=== PATIENT | female | born 1985 | race Caucasian/White ===

== ENCOUNTER 2018-05-31 09:31 | Inpatient (IN) ==
[2018-05-31 10:04] LABS: Basophils % 0.5 % (0.0-0.8); Eosinophils % 0.5 % (0.00-10.9); Hematocrit 32.5 VOL% (35.7-47.0); Hemoglobin 10.8 GM/DL (12.0-16.0); Immature Granulocytes % 0.5 %; Immature Granulocytes Absolute 0.04 #; Lymphocytes # 2.1 10*3/uL (1.4-4.0); Lymphocytes % 25.1 % (21.3-54.2); Mean Corpuscular HGB Conc 33.2 GM/DL (32-36); Mean Corpuscular Hemoglobin 31 PG (27-34); Mean Corpuscular Volume 93.1 FL (87-102); Mean Platelet Volume 12.2 FL (9.6-12.0); Monocytes # 0.4 10*3/uL (0.11-0.8); Monocytes % 4.5 % (1.7-12.7); Neutrophils # 5.8 10*3/uL (1.4-7.4); Neutrophils % 68.9 % (38.7-73.9); Platelet Count 213 T/CUMM (130-400); Red Blood Count 3.49 MC/CUMM (3.8-5.5); Red Cell Distribution Width 13.2 % (9.3-17.3); White Blood Count 8.4 T/CUMM (4-12)
[2018-05-31 10:15] LABS: INR 0.9; PT Patient Result 9.4 SECS
[2018-05-31 10:21] LABS: Alanine Aminotransferase 12 U/L (13-56); Albumin 2.4 G/DL (3.4-5.0); Alkaline Phosphatase 223 U/L (45-117); Aspartate Amino Transferase 14 U/L (0-37); Bilirubin,Direct < 0.100 MG/DL (0.0-0.20); Blood Urea Nitrogen 6 MG/DL (7-18); Calcium 8.2 MG/DL (8.5-10.1); Glucose 82 MG/DL (74-106); Osmolality,Calculated 269.8 MOS/KG (273-304); Potassium 3.9 MMOL/L (3.5-5.1); Sodium 137 MMOL/L (136-145); Total Protein 6.8 G/DL (6.4-8.3); Uric Acid 5.3 MG/DL (2.6-6.0)
[2018-05-31] MEDS ORDERED: hydrALAZINE 20 MG/1 ML VIAL IV ONE (10:23)
[2018-05-31] MEDS: LACTATED RINGERS 1,000 ML IV SCH ×2 (10:36→17:16)
[2018-05-31 11:22] LABS: Apearance,Urine CLOUDY (Clear); Bacteria,Urine Occasional /HPF (Few); Bilirubin,Urine Negative (Negative); Blood, Urine Negative (Negative); Glucose,Urine (UA) Negative (Negative); Ketones,Urine Negative (Negative); Mucus,Urine Occasional /LPF (Occasional); Nitrite,Urine Negative (Negative); Protein,Urine 100 MG/DL; Squamous Epithelial Cell,Urine Occasional /HPF (0-10); Urine Color Yellow (Yellow); Urine Specific Gravity 1.014 (1.001-1.035); Urine Urobilinogen < 2.0 EU/DL (0.2-1.0); WBC,Urine 6 /HPF (0-6)
[2018-05-31] MEDS ORDERED: DINOPROSTONE VAG GEL 10 MG SYRINGE VAG ONE (13:05)
[2018-05-31] MEDS ORDERED: CITRIC ACID/SODIUM CITRATE 30 ML UDCUP PO ONE (13:10)
[2018-05-31] MEDS ORDERED: FAMOTIDINE 20 MG/2 ML VIAL IV ONE (13:10)
[2018-05-31] MEDS ORDERED: ceFAZolin 2,000 MG in PREMIX 1 EACH IV ONE (13:10)
[2018-05-31] MEDS ORDERED: OXYTOCIN 10 UNIT/ML VIAL IM ONE (13:53)
[2018-05-31] MEDS ORDERED: OXYTOCIN/LR 30 UNIT/1,000 ML BAG IV ONE (16:30)
[2018-05-31 19:03] LABS: Cord Arterial Blood HCO3 20.4 MMOL/L
[2018-05-31] MEDS ORDERED: ONDANSETRON 4 MG/2 ML VIAL IV PRN (19:06)
[2018-05-31] MEDS ORDERED: OXYTOCIN/LR 20 UNIT/1,000 ML BAG IV ONE (19:06)
[2018-05-31] MEDS ORDERED: IBUPROFEN 800 MG TABLET PO PRN (19:06)
[2018-05-31] MEDS ORDERED: SIMETHICONE CHEW 80 MG TABLET PO PRN (19:06)
[2018-05-31] MEDS ORDERED: ACETAMINOPHEN 325 MG TABLET PO PRN (19:06)
[2018-05-31] MEDS ORDERED: RHO(D) IMMUNE GLOBULIN 300 MCG SYRINGE IM ONE (19:06)
[2018-05-31 19:07] LABS: Cord Venous Blood HCO3 21.2 MMOL/L; Cord Venous Blood PCO2 48.3 MMHG; Cord Venous Blood PO2 23.8
[2018-05-31 19:17] LABS: Apearance,Urine CLEAR (Clear); Bilirubin,Urine Negative (Negative); Blood, Urine Negative (Negative); Glucose,Urine (UA) Negative (Negative); Ketones,Urine Negative (Negative); Mucus,Urine Occasional /LPF (Occasional); Nitrite,Urine Negative (Negative); Protein,Urine 100 MG/DL; RBC,Urine <1 /HPF (0-4); Squamous Epithelial Cell,Urine Occasional /HPF (0-10); Urine Color Yellow (Yellow); Urine Specific Gravity 1.024 (1.001-1.035); WBC,Urine 1 /HPF (0-6)
[2018-05-31] MEDS ORDERED: MORPHINE 10 MG/10 ML VIAL ONE (19:19)
[2018-05-31] MEDS ORDERED: BUPIVACAINE SPINAL 0.75% 2 ML AMP SPINAL ONE (19:19)
[2018-05-31] MEDS ORDERED: PHENYLEPHRINE 1 MG/10 ML SYRINGE IV ONE (19:20)
[2018-06-01] MEDS: ceFAZolin 1,000 MG in SYRINGE 1 EACH IV SCH ×2 (00:55→08:23)
[2018-06-01] MEDS: DOCUSATE SODIUM 100 MG CAPSULE PO SCH ×3 (01:07→21:29)
[2018-06-01] MEDS: LACTATED RINGERS 1,000 ML IV SCH ×2 (01:07→07:04)
[2018-06-01 01:18] LABS: Basophils % 0.3 % (0.0-0.8); Eosinophils % 0.1 % (0.00-10.9); Hemoglobin 9.9 GM/DL (12.0-16.0); Immature Granulocytes % 0.5 %; Immature Granulocytes Absolute 0.08 #; Lymphocytes # 2.5 10*3/uL (1.4-4.0); Lymphocytes % 16.2 % (21.3-54.2); Mean Corpuscular Hemoglobin 31 PG (27-34); Mean Corpuscular Volume 92.6 FL (87-102); Mean Platelet Volume 12.3 FL (9.6-12.0); Monocytes # 0.9 10*3/uL (0.11-0.8); Monocytes % 5.7 % (1.7-12.7); Neutrophils # 11.9 10*3/uL (1.4-7.4); Neutrophils % 77.2 % (38.7-73.9); Platelet Count 202 T/CUMM (130-400); Red Blood Count 3.24 MC/CUMM (3.8-5.5); Red Cell Distribution Width 13.1 % (9.3-17.3); White Blood Count 15.4 T/CUMM (4-12)
[2018-06-01 08:47] LABS: Basophils % 0.3 % (0.0-0.8); Eosinophils % 0.1 % (0.00-10.9); Hematocrit 31.1 VOL% (35.7-47.0); Hemoglobin 10.4 GM/DL (12.0-16.0); Immature Granulocytes % 0.6 %; Immature Granulocytes Absolute 0.08 #; Lymphocytes % 14.2 % (21.3-54.2); Mean Corpuscular HGB Conc 33.4 GM/DL (32-36); Mean Corpuscular Hemoglobin 31 PG (27-34); Mean Corpuscular Volume 92.3 FL (87-102); Mean Platelet Volume 12.2 FL (9.6-12.0); Monocytes # 0.6 10*3/uL (0.11-0.8); Monocytes % 4.1 % (1.7-12.7); Neutrophils # 11.6 10*3/uL (1.4-7.4); Neutrophils % 80.7 % (38.7-73.9); Platelet Count 199 T/CUMM (130-400); Red Blood Count 3.37 MC/CUMM (3.8-5.5); Red Cell Distribution Width 13.1 % (9.3-17.3); White Blood Count 14.3 T/CUMM (4-12)
[2018-06-01] MEDS: MULTIVITAMIN (PRENATAL) TABLET PO SCH (08:48)
[2018-06-01] MEDS: FERROUS SULFATE 325 MG TABLET PO SCH ×2 (08:48→21:29)
[2018-06-01] MEDS: MAGNESIUM HYDROXIDE SUSP 30 ML UDCUP PO PRN (08:49)
[2018-06-01] MEDS ORDERED: RHO(D) IMMUNE GLOBULIN 300 MCG SYRINGE IM ONE (12:14)
[2018-06-02 07:22] VITALS: BP 146/85
[2018-06-02] MEDS: MAGNESIUM HYDROXIDE SUSP 30 ML UDCUP PO PRN (08:45)
[2018-06-02] MEDS: DOCUSATE SODIUM 100 MG CAPSULE PO SCH (08:45)
[2018-06-02] MEDS: MULTIVITAMIN (PRENATAL) TABLET PO SCH (08:46)
[2018-06-02] MEDS: FERROUS SULFATE 325 MG TABLET PO SCH (08:46)
[2018-06-02] MEDS ORDERED: METOCLOPRAMIDE 10 MG TABLET PO PRN (09:00)
== END 2018-06-02 13:35 | disposition home or self-care (01) | DRG 788 ==
LOC: N.LDOUT 09:31 → N.LD 09:35 → N.OB 22:31
PROVIDERS: ADMIT Obstetrics & Gynecology; ATTEND Obstetrics & Gynecology
PROC: LDCSECT (ICD-10-PCS; 2018-05-31 18:30)